=== PATIENT | female | born 1935 | race Caucasian/White ===

== ENCOUNTER → 2017-05-11 | Outpatient (CLI) | payer OTHER, BC ==
[~2017-05-11] MED LIST: ACTIGALL300 MG PO; ADDERALL 5 MG TA5 M1 PO; ARMOUR THYROID15 M1 PO; AVINZA 60 MG CA60 M1 PO; B12 INJECTION; BIOTIN5 MG PO; BROMELAIN; CALCIUM 500 +1 EAC5 PO; CLONAZEPAM 1 MG1 M1 PO; DESYREL50 MG PO; DOXEPIN 10 MG C10 MG PO; GABAPENTIN 100100 MG PO; GABAPENTIN100 MG PO; MIRALAX255 GM PO; MORPHINE SULFAT15 M3 PO; MORPHINE SULFAT15 M4 PO; MORPHINE SULFATE IR PO; MS CONTIN15 MG PO; MULTIVITAMINS PO; OSTEO BI-FLEX1 EACH PO; PHENERGAN 25 MG25 M1 PO; PROMS25 WY RECTAL; PROZAC 20 MG20 MG PO; PROZAC20 MG/5 ML PO; VITAMINC500 PO; ZOFRAN ODT4 MG PO; [UNRECOGNIZED DRUG - OTHER]
== END ==
LOC: RAD 15:16
DX: Z12.31 Encounter for screening mammogram for malignant neoplasm of breast (principal)

== ENCOUNTER 2018-07-13 22:37 | Emergency (ER) | payer OTHER, BC ==
[~2018-07-13] VITALS: Ht 165.1 cm; Wt 59.0 kg
[2018-07-13 23:24] LABS: ABSOLUTE NEUTROPHILS 4.5 thou/uL (1.4-8.2); BASOPHILS 0.8 % (0.0-2.0); EOSINOPHILS 2.7 % (0.0-3.0); HEMATOCRIT 41.3 % (37.0-47.0); HEMOGLOBIN 14.1 gm/dL (12.0-15.0); LYMPHOCYTES 22.3 % (24.0-44.0); MCH 32.8 pg (26.0-34.0); MCHC 34.2 g/dL (28.0-37.0); MCV 95.8 fL (80.0-100.0); MONOCYTES 10.9 % (1.0-8.0); PLATELET COUNT 253 thou/uL (150-400); POLYS 63.3 % (36.0-66.0); RBC 4.31 mil/uL (4.20-5.00); RDW 12.9 % (10.5-14.5); WBC 7.1 thou/uL (4.0-11.0)
[2018-07-14 00:48] VITALS: BP 123/102
== END 2018-07-14 00:48 | disposition home or self-care (01) ==
LOC: ER 22:37
PROVIDERS: Emergency Medicine
DX: M25.552 Pain in left hip (principal); K21.9 Gastro-esophageal reflux disease without esophagitis; Z90.49 Acquired absence of other specified parts of digestive tract

== ENCOUNTER 2020-09-30 14:03 | Inpatient (IN) | payer OTHER, BC ==
[~2020-09-30] VITALS: Ht 162.6 cm; Wt 49.0 kg
[2020-09-30 14:24] VITALS: BP 138/80
[2020-09-30 15:15] LABS: URINE BILIRUBIN NEGATIVE (Negative); URINE BLOOD NEGATIVE (Negative); URINE CLARITY CLEAR; URINE COLOR YELLOW; URINE GLUCOSE-RANDOM* NEGATIVE (Negative); URINE KETONES 1+ (Negative); URINE LEUKOCYTES-REFLEX NEGATIVE (Negative); URINE NITRITE-REFLEX NEGATIVE (Negative); URINE PROTEIN (DIPSTICK) NEGATIVE (Negative); URINE UROBILINOGEN 0.2 E.U./dl (0.2-1.0)
[2020-09-30 15:37] LABS: ABSOLUTE NEUTROPHILS 5.8 thou/uL (1.4-8.2); BASOPHILS 0.8 % (0.0-2.0); EOSINOPHILS 0.2 % (0.0-3.0); HEMATOCRIT 40.1 % (37.0-47.0); HEMOGLOBIN 13.6 gm/dL (12.0-15.0); LYMPHOCYTES 10.5 % (24.0-44.0); MCH 32.4 pg (26.0-34.0); MCHC 33.9 g/dL (28.0-37.0); MCV 95.8 fL (80.0-100.0); MONOCYTES 8.8 % (1.0-8.0); PLATELET COUNT 274 thou/uL (150-400); POLYS 79.7 % (36.0-66.0); RBC 4.19 mil/uL (4.20-5.00); RDW 12.9 % (10.5-14.5); WBC 7.3 thou/uL (4.0-11.0)
[2020-09-30 15:49] LABS: CALCIUM 9.7 mg/dL (8.5-10.1); CREATININE 0.9 mg/dL (0.6-1.0); POTASSIUM 4.5 mmol/L (3.5-5.1)
[2020-09-30 15:53] LABS: TOTAL BILIRUBIN 0.6 mg/dL (0.2-1.0)
[2020-09-30 19:58] VITALS: BP 146/66
[2020-09-30 20:10] VITALS: BP 146/66
[2020-09-30 20:45] VITALS: BP 177/71
[2020-09-30 23:31] VITALS: BP 142/71
--- NOTE | 2020-10-01 02:53 | NUR ---
PATIENT ADMITTED FOR CONSTIPATION. PATIENT AOX4 MAKES NEEDS KNOWN. PATIENT NEEDS MAXIMUM ASSISTANCE WITH ADL, BED MOBILITY, TRANSFER AND TOILETING.PATIENT INCONTIENT THIS SHIFT PERICARE AND BARRIER CREAM APPLIED NEEDED. FAL PRECAUTION IN PLACE. PATIENT IN BED ASLEEP AT THIS TIME BREATHING REGULAR AND UNLABOURED.
[2020-10-01 03:49] VITALS: BP 144/71
[2020-10-01 08:00] VITALS: BP 150/73
[2020-10-01 08:11] VITALS: BP 150/73
--- NOTE | 2020-10-01 15:10 | NUR ---
PT ADMITTED RELATED TO CONSTIPATION, FECAL IMPACTION, AND WEAKNESS. CM REVIEWED CHART AND SPOKE WITH CARE TEAM. CM MET WITH PT AT BEDSIDE THIS DAY. PT APPEARED TO BE A&O X4. CM ROLE INTRODUCED. PT INDICATED SHE RESIDES IN A HOUSE ALONE WITH 1 STEP TO ENTER AND NONE SHE USES INSIDE. 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 PT INDICATED SHE HAS PD SERVICES THROUGH [facility] TWO DAYS A WEEK FOR 3 HRS. PT'S SON LIVES LOCALLY AND ASSISTS NEEDED. PT'S DTR LIVES IN [place] AND IS HER DPOA. PT INDICATED SHE IS INTERESTED IN POST ACUTE CARE STAY. LIST PROVIDED. CM MET WITH PT AND SON AT BEDSIDE THIS AFTERNOON AND THEY ASKED IF REFERRAL COULD BE SENT TO [facility]. CM FAXED REFERRAL FOR REVIEW. CM FOLLOWING REGARDING DC PLANNING. PT'S CHILDREN'S FAM CONTACTS HIWOT AU , ANDRADE GARCIA .
--- NOTE | 2020-10-01 15:12 | NUR ---
Assumed pt care at 7am.Pt in and out of bed with sba. Assessment completed. vss.Pt was anxious and worried about her home meds. Pt encouraged pt to discuss with Dr Vicente when making round.Pt has diarrhea after given miralax. Accounts Payable Supervisor assisted pt with pericare.Fall bundle in placed.Ivf infusing as ordered. Son called and updates given. Pt in bed resting at present without c/o.Will continue to monitor.
[2020-10-01 16:13] VITALS: BP 164/80
[2020-10-01 20:16] VITALS: BP 140/66
--- NOTE | 2020-10-02 00:30 | NUR ---
Pt. iv machine sounded off and patient became upset. Informed patient that they will sound off if the iv is not positioned right,need more fluids and or the battery needs charging. Pt. not willing to accept that answer. She voiced she has been here the last two nights and it never went off. Parrish RN went down to talk to the patient, but still not satisfied and iv pump was re- placed at pt. request. Iv pump would still sound off and patient becoming angry. Demanded the iv be turned off. Dorinda MARTINEZ notified with orders to Dc ivf. Bed alarm is on.
[2020-10-02 08:35] VITALS: BP 176/87
--- NOTE | 2020-10-02 12:12 | NUR ---
DINAH WITH [facility] INDICATED THAT THEY ARE ABLE TO ACCEPT PT MEDICALLY BUT THAT THEY WON'T HAVE A BED OPEN UNTIL MAYBE TOMORROW. SHE WILL KNOW FOR SURE AFTER 1500 THIS DAY. CM FOLLOWING REGARDING DC PLANNING.
[2020-10-02 15:05] VITALS: BP 160/77
--- NOTE | 2020-10-02 15:41 | NUR ---
ASSUMED PT CARE THIS AM. PT A&OX4, ABLE TO MAKE NEEDS KNOWN. PATIENT IV PATENT, SALINE LOCKED. REPORTS NO PAIN, NAUSEA OR VOMITING. ON ROOM AIR. PATIENT UP TO BEDSIDE COMMODE WITH ASSIST. PATIENT HAD A HERRMANN CATHETER THIS AM, ORDER TO REMOVE PLACED. FALL PRECAUTIONS ARE IN PLACE. CALL LIGHT WITHIN REACH.
[2020-10-02 19:47] VITALS: BP 169/84
--- NOTE | 2020-10-03 04:14 | NUR ---
Assumed pt care at 1900. A/Ox4,VSS. Denies pain on assessment, no N/V. Up with AX1 RW/GB to the bathroom. Pt had benton dc'd yesterday no void till 0200, bladder scan showed 593cc, order to straight cath pt obtained but pt voided in bed as well as in the toilet. Post void cath 14cc;no need for straight cath. Pt verbalizes relief. Fall precautions in place, will continue to monitor pt.
[2020-10-03 07:23] VITALS: BP 180/88
[2020-10-03] MEDS ORDERED: MIRALAX17 GM PO (08:52)
[2020-10-03] MEDS ORDERED: COLACE 100 MG100 MG PO (08:52)
--- NOTE | 2020-10-03 11:34 | NUR ---
CARE TEAM INDICATED THAT PT IS MEDICALLY STABLE TO DISCHARGE TO [facility] SKILLED THIS DAY. PT, SON, AND DTR ALL AWARE. [facility]AN TRANSPORT ARRANGED FOR 1400. CHART COPY ORDERED. ORDERS FAXED WELL COVID. NO OTHER CM INTERVENTION INDICATED. CASE CLOSED.
--- NOTE | 2020-10-03 11:55 | NUR ---
ASSUMED PT CARE THIS AM. PT A&OX4, ABLE TO MAKE NEEDS KNOWN. PATIENT VOICED FRUSTRATIONS THIS AM ABOUT HAVING THE BED ALARM TURNED ON AND WANTING TO AWLK AROUND HER ROOM INDEPENDENTLY. PATIENT WAS EDUCATED ON THE IMPORTANCE OF THE BED ALARM AND TO CALL WHEN SHE IS WANTING TO AMBULATE. PATIENT REPORTING NO PAIN. PATIENT REPORTED NAUSEA THIS AM, RESPONDED WELL TO NAUSEA MEDICATION GIVEN PER EMAR. PATIENT IS ON ROOM AIR. DENIES ANY NUMBNESS OR TINGLING. PATIENT TOOK ALL MORNING MEDICATIONS WITHOUT ISSUE. PATIENT REMAINS CONTINENT AND AMBUALTES TO THE BATHROOM WITH ASSIST WHEN NEEDED. FALL PRECAUTIONS ARE IN PLACE, CALL LIGHT WITHIN REACH.
== END 2020-10-03 14:16 | DRG 388 ==
LOC: ER 14:03 → 4W 19:38 → EROBS 19:38 → 4W 20:12
PROVIDERS: Nurse Practitioner Family; ADMIT Hospitalist; ATTEND Hospitalist
DX: K56.41 Fecal impaction (principal); E43 Unspecified severe protein-calorie malnutrition; Z68.1 Body mass index [BMI] 19.9 or less, adult; K21.9 Gastro-esophageal reflux disease without esophagitis; I10 Essential (primary) hypertension; G47.00 Insomnia, unspecified; G89.29 Other chronic pain; N32.89 Other specified disorders of bladder; Z60.2 Problems related to living alone; R53.81 Other malaise; R63.4 Abnormal weight loss; F32.9 Major depressive disorder, single episode, unspecified; F41.9 Anxiety disorder, unspecified; M47.896 Other spondylosis, lumbar region; M48.061 Spinal stenosis, lumbar region without neurogenic claudication; Z20.822 Contact with and (suspected) exposure to COVID-19; Z90.49 Acquired absence of other specified parts of digestive tract; Z83.3 Family history of diabetes mellitus
CPT/HCPCS: 10040

== ENCOUNTER 2020-11-13 10:43 | Emergency (ER) | payer OTHER, BC ==
[~2020-11-13] VITALS: Ht 162.6 cm; Wt 49.9 kg
[~2020-11-13 10:43] MED LIST changes: +COLACE 100 MG100 MG PO; +MIRALAX17 GM PO
[2020-11-13 11:36] LABS: ABSOLUTE NEUTROPHILS 5.5 thou/uL (1.4-8.2); BASOPHILS 0.8 % (0.0-2.0); EOSINOPHILS 1.2 % (0.0-3.0); HEMATOCRIT 36.9 % (37.0-47.0); HEMOGLOBIN 12.4 gm/dL (12.0-15.0); LYMPHOCYTES 12.2 % (24.0-44.0); MCH 32.5 pg (26.0-34.0); MCHC 33.6 g/dL (28.0-37.0); MCV 96.8 fL (80.0-100.0); MONOCYTES 8.5 % (1.0-8.0); PLATELET COUNT 279 thou/uL (150-400); POLYS 77.3 % (36.0-66.0); RBC 3.81 mil/uL (4.20-5.00); RDW 14.3 % (10.5-14.5); WBC 7.1 thou/uL (4.0-11.0)
[2020-11-13 11:54] LABS: ANION GAP 10 mmol/L (7-16); BUN 18 mg/dL (7-18); CALCIUM 9.3 mg/dL (8.5-10.1); CHLORIDE 105 mmol/L (98-107); CO2 24 mmol/L (21-32); CREATININE 0.9 mg/dL (0.6-1.0); GLUCOSE 148 mg/dL (74-106); POTASSIUM 4.5 mmol/L (3.5-5.1); SODIUM 139 mmol/L (136-145)
[2020-11-13 12:00] LABS: SGOT 42 U/L (15-37); SGPT 62 U/L (30-65); TOTAL BILIRUBIN 0.5 mg/dL (0.2-1.0); TOTAL PROTEIN 6.9 g/dL (6.4-8.2)
[2020-11-13 12:11] LABS: SALICYLATE < 2.8 mg/dL (2.8-20.0)
[2020-11-13 14:57] LABS: URINE BILIRUBIN NEGATIVE (Negative); URINE BLOOD NEGATIVE (Negative); URINE CLARITY CLEAR; URINE COLOR YELLOW; URINE GLUCOSE-RANDOM* NEGATIVE (Negative); URINE KETONES NEGATIVE (Negative); URINE NITRITE-REFLEX NEGATIVE (Negative); URINE PROTEIN (DIPSTICK) NEGATIVE (Negative); URINE UROBILINOGEN 0.2 E.U./dl (0.2-1.0)
[2020-11-13 15:09] LABS: URINE LEUKOCYTES-REFLEX 1+ (Negative)
[2020-11-13 15:38] LABS: BACTERIA-REFLEX 1-9 Few /HPF (None Seen); CASTS None Seen /LPF (None Seen); CRYSTALS None Seen /LPF (None Seen); SQUAMOUS 0-3 Few /LPF (0-3); URINE RBC None Seen /HPF (NONE SEEN); URINE WBC-REFLEX 0-5 Rare /HPF (0-5)
[2020-11-13 17:08] VITALS: BP 140/53
[2020-11-14] MEDS ORDERED: AMPHETAMINE SUL10 MG PO (00:50)
[2020-11-14] MEDS ORDERED: BUPRENORPHINE HC2 MG SUBLING (00:53)
[2020-11-14] MEDS ORDERED: BUSPAR30 MG PO (00:53)
[2020-11-14] MEDS ORDERED: CLONAZEPAM 0.50.5 M1 PO (00:55)
[2020-11-14] MEDS ORDERED: CALCIUM MAGNES1 EAC2 PO (00:55)
[2020-11-14] MEDS ORDERED: COQ1050 MG PO (00:56)
[2020-11-14] MEDS ORDERED: CULTURELLE PRO1 EACH PO (00:57)
[2020-11-14] MEDS ORDERED: FERROUS GLUCON240 MG PO (00:58)
[2020-11-14] MEDS ORDERED: FIBERCON625 M1 PO (00:58)
[2020-11-14] MEDS ORDERED: HYDROXYZINE HCL10 M2 PO (00:58)
[2020-11-14] MEDS ORDERED: METOCLOPRAMIDE10 MG PO (00:59)
[2020-11-14] MEDS ORDERED: MELOXICAM7.5 MG PO (00:59)
[2020-11-14] MEDS ORDERED: MOVANTIK25 MG PO (01:00)
[2020-11-14] MEDS ORDERED: NARCAN4 MG NARES (01:01)
[2020-11-14] MEDS ORDERED: SENNA8.6 MG PO (01:02)
[2020-11-14] MEDS ORDERED: VITAMIN B-121000 MC1 PO (01:02)
[2020-11-14] MEDS ORDERED: VITAMIN B-1100 M2 PO (01:02)
[2020-11-14] MEDS ORDERED: ONDANSETRON HCL4 M2 PO (01:03)
[2020-11-14] MEDS ORDERED: TRAZODONE HCL50 MG PO (01:05)
[2020-11-14] MEDS ORDERED: CAL-MAG TABLET1 EACH PO (05:54)
== END 2020-11-13 17:15 ==
LOC: ER 10:43
PROVIDERS: Physician Assistant
DX: N39.0 Urinary tract infection, site not specified (principal); R45.1 Restlessness and agitation; K21.9 Gastro-esophageal reflux disease without esophagitis; Z79.899 Other long term (current) drug therapy; Z90.49 Acquired absence of other specified parts of digestive tract

== ENCOUNTER 2020-11-13 17:47 | Inpatient (IN) | payer OTHER, BC ==
[~2020-11-13] VITALS: Ht 162.6 cm; Wt 50.5 kg
[2020-11-14] MEDS ORDERED: AMPHETAMINE SUL10 MG PO (00:50)
[2020-11-14] MEDS ORDERED: BUSPAR30 MG PO (00:53)
[2020-11-14] MEDS ORDERED: BUPRENORPHINE HC2 MG SUBLING (00:53)
[2020-11-14] MEDS ORDERED: CLONAZEPAM 0.50.5 M1 PO (00:55)
[2020-11-14] MEDS ORDERED: CALCIUM MAGNES1 EAC2 PO (00:55)
[2020-11-14] MEDS ORDERED: COQ1050 MG PO (00:56)
[2020-11-14] MEDS ORDERED: CULTURELLE PRO1 EACH PO (00:57)
[2020-11-14] MEDS ORDERED: FERROUS GLUCON240 MG PO (00:58)
[2020-11-14] MEDS ORDERED: HYDROXYZINE HCL10 M2 PO (00:58)
[2020-11-14] MEDS ORDERED: FIBERCON625 M1 PO (00:58)
[2020-11-14] MEDS ORDERED: METOCLOPRAMIDE10 MG PO (00:59)
[2020-11-14] MEDS ORDERED: MELOXICAM7.5 MG PO (00:59)
[2020-11-14] MEDS ORDERED: MOVANTIK25 MG PO (01:00)
[2020-11-14] MEDS ORDERED: NARCAN4 MG NARES (01:01)
[2020-11-14] MEDS ORDERED: SENNA8.6 MG PO (01:02)
[2020-11-14] MEDS ORDERED: VITAMIN B-1100 M2 PO (01:02)
[2020-11-14] MEDS ORDERED: VITAMIN B-121000 MC1 PO (01:02)
[2020-11-14] MEDS ORDERED: ONDANSETRON HCL4 M2 PO (01:03)
[2020-11-14] MEDS ORDERED: TRAZODONE HCL50 MG PO (01:05)
[2020-11-14 03:19] LABS: URINE BILIRUBIN NEGATIVE (Negative); URINE BLOOD NEGATIVE (Negative); URINE CLARITY CLEAR; URINE COLOR YELLOW; URINE GLUCOSE-RANDOM* NEGATIVE (Negative); URINE KETONES NEGATIVE (Negative); URINE LEUKOCYTES TRACE (Negative); URINE NITRITE NEGATIVE (Negative); URINE PROTEIN (DIPSTICK) NEGATIVE (Negative); URINE SPECIFIC GRAVITY 1.015 (1.005-1.035); URINE UROBILINOGEN 0.2 E.U./dl (0.2-1.0)
[2020-11-14 05:42] LABS: ABSOLUTE NEUTROPHILS 2.5 thou/uL (1.4-8.2); BASOPHILS 1.4 % (0.0-2.0); EOSINOPHILS 5.8 % (0.0-3.0); HEMATOCRIT 34.4 % (37.0-47.0); HEMOGLOBIN 11.7 gm/dL (12.0-15.0); LYMPHOCYTES 26.8 % (24.0-44.0); MCH 32.7 pg (26.0-34.0); MCHC 34.1 g/dL (28.0-37.0); MCV 95.8 fL (80.0-100.0); MONOCYTES 11.5 % (1.0-8.0); PLATELET COUNT 230 thou/uL (150-400); POLYS 54.5 % (36.0-66.0); RBC 3.59 mil/uL (4.20-5.00); RDW 14.1 % (10.5-14.5); WBC 4.6 thou/uL (4.0-11.0)
[2020-11-14] MEDS ORDERED: CAL-MAG TABLET1 EACH PO (05:54)
--- NOTE | 2020-11-14 06:16 | NUR ---
Brought to the [facility] floor by [facility] staff x1 prior to 18:15 and assisted into bed 522B. Ambulates with assistance of walker. Steady gait noted. Reports that she was in [facility] to do physical therapy for weak legs. Denies any memory of attempting to elope although reports that she very much did not want to be at the half-way. Admitted as a FULL CODE, NKA, regular diet, supplements between meals, reports that she likes any flavor of supplement shake. No dentures no glasses, reports that she would benefit from reading glasses, no hearing aides. oriented x2 to name of the hospital and self. unable to give the date, says she cannot/or will not give the name of the president. Reports rob is Rastafari. Reports abdominal HX of cholesystectomy. Repeatedly asked for medication, then when brought, refused to take it, saying is this poison. Muscle weakness in both legs. Paranoid ideation, talks about "[place]" and WWII concentration camps. Daughter Tamika reports she will be here @ 10:45 to visit her mom. Repeatedly asks to leave, and when informed that she will see the Doctor today, and the is the one to arrange her discharge. Says, I wont cooperate, I wont be here that long. Oriented to breakfast time, fall protocol, the doctors who will follow her case and their role in her care. HX of bladder CA, malignant neoplasm of bladder, chronic constipation, H TN, Spinal stenosis, RLS, low back pain, anxiety disorder, primary insomnia, muscle weakness to the lower extremities, difficulty walking, cholesystectomy, paranoid ideation, elopment risk, admitting DX of psychosis NOS. Son Art, DPOA consented to treat.
[2020-11-14 06:24] LABS: ALBUMIN 3.6 g/dL (3.4-5.0); ANION GAP 10 mmol/L (7-16); BUN 16 mg/dL (7-18); CHLORIDE 105 mmol/L (98-107); CHOLESTEROL 179 mg/dL (<200); CO2 25 mmol/L (21-32); CREATININE 0.8 mg/dL (0.6-1.0); GLUCOSE 95 mg/dL (74-106); HDL CHOLESTEROL 95 mg/dL (>40); LDL CHOLESTEROL 77 mg/dL (<100); POTASSIUM 3.9 mmol/L (3.5-5.1); SGOT 26 U/L (15-37); SGPT 51 U/L (30-65); SODIUM 140 mmol/L (136-145); TC:HDL 1.9 Ratio (Not establshd); TOTAL BILIRUBIN 0.6 mg/dL (0.2-1.0); TOTAL PROTEIN 6.2 g/dL (6.4-8.2); TRIGLYCERIDE 39 mg/dL (<150); VLDL 8 mg/dL (<40)
[2020-11-14 06:33] LABS: SERUM ASSESSMENT Clear
--- NOTE | 2020-11-14 12:47 | NUR ---
PT AGITATED AND PARANOID. PACING THROUGHOUT UNIT. WILL ONLY SIT MOMENTARILY. PT THREATING TO [facility] STAFF. PT REFUSED ALL MORNING MEDICATIONS AND ASSESSMENTS. AFEBRILE, ADEQUATE UOP, NO BM, POOR APPETITE. PT AND DAUGHTER HAVE BEEN THOUROUGHLY UPDATED AND EDUCATED ON PT CONDITION AND POC.
--- NOTE | 2020-11-14 17:13 | NUR ---
1530 ASSUMED CARE OF PATIENT, PATIENT IN BED AT THAT TIME. 1545 PATIENT UP AMB IN [place] WITH WALKER ASKING TO LEAVE WITH C/O NEEDING TO GO HOME. SLIGHT AGGITATION NOTED SOFTWARE PACKAGER SPOKE WITH PATIENT REDIRECTING PATIENT TO DAYROOM FOR VISITATION. DAUGHTER HER TO VISIT PATIENT. DAUGHTER HAS MULTIPLE QUESTIONS, SOFTWARE PACKAGER ABLE TO ANSWER QUESTIONS. WILL CONTINUE TO OBSERVE
[2020-11-14 23:06] LABS: GLYCOHEMOGLOBIN (HGB A1C) 5.5 % (4.8-5.6)
--- NOTE | 2020-11-15 13:09 | NUR ---
PATIENT CARE ASSUMED AT 0700 - SHORTLY BEFORE GEODON GIVEN IM BEFORE ARRIVAL ON UNIT. PATIENT CALM BUT FIXATED ON LEAVING AND REPEATEDLY ASKS TO BE LET OUT. PATIENT ATE BUT COMPLAINED OF CONSTIPATION. GIVEN MULTIPLE STOOL SOFTENERS WITH HER MORNING MEDICATIONS. PATIENT STATED STOMACH DISCOMFORT WELL. GIVEN ZOFRAN AT NOON AND STATED HELPED. PATIENT DAUGHTER HERE REQUESTED LIST OF MEDICATIONS - DR. GRANDA STATED ADDING ULTRAM FOR PAIN DISCOMFORT AND PROBIOTIC TO AID WITH DIGESTION ISSUES. ANTIBIOTIC D/C DUE TO IMPROVED LAB RESULTS. PATIENT AFFECT FLAT AND IRRITABLE AND MOOD ANXIOUS - DAUGHTER VISITED AND WENT WELL. APPETITE POOR BUT ATE 25 PERCENT OF HER MEALS. HAS DIFFICULTY SWALLOWING PILLS OFFERED THICKENED FLUIDS TO AID WITH ADMINISTRATION OF PILLS. DID NOT PARTICIPATE IN GROUP - STAYED IN ROOM.
--- NOTE | 2020-11-15 18:26 | NUR ---
@4303 MAITE was able to speak with the Pt's daughter, Annabel. Annabel inquired about discharge for the Pt. Joana stated she believes the Pt is not doing well and would do better at home with 24 hour supervision. MAITE educated on the Pt's current behaviors. Also that the Pt has been seen by Dr. Kendrick and it is not recommended at this time that Pt is discharged. Maite also informed that the Pt's so is the 1st appointment DPOA and would have to be in agreement to the plan of discharge. Annabel seemed to understand this information. MAITE will call DPOA to discuss discharge plans.
[2020-11-15 20:54] VITALS: BP 165/77
--- NOTE | 2020-11-16 04:26 | NUR ---
PT ALERT AND ORIENT TO SELF. UP WITH WALKER IN [place]. REQUESTED SOMETHING FOR PAIN AND EARLIER SHE WANTED SOMETHING FOR SLEEPING. PT STATE THAT SHE HAS, "RESTLESS ARM SYNDROME". PT SEEMED TRUSTING OF THIS RN AND TOOK ALL MEDS WITHOUT DIFFICULTY. PT WAS NOT AGGRESSIVE AND EVENTUALLY WENT TO SLEEP FOR 3+ HRS. SLOW PROGRESS TOWARDS DC GOALS. WILL CONTINUE TO MONITOR.
[2020-11-16 09:23] VITALS: BP 164/92
[2020-11-16 12:12] VITALS: BP 138/98
--- NOTE | 2020-11-16 15:06 | NUR ---
Assumed pt care at 0700. pt was in her room resting. Alert and oriented to person, place and time. Assessments completed, vss. Denies si/hi, c/o pain. tylenol administered as ordered.luNgs sound clear on auscultation. Ambulates with a walker. pt have a flat affect. No sign of acute distress noted upon assessments. pt ambulates the hallway. pt was agitated, but was redirectablE. Pt daughter visited, she had lots of question about pt meds. pt daugheter concern were addressed.At this time pt is ambulating UNIT hallway. WILL CONTINUE TO MONITOR.
--- NOTE | 2020-11-16 15:08 | NUR ---
SW received a message from nursing staff pt's daughter requested to speak with SW. Called daughter Annabel and left a voice message asking her to call SW. SW team will remain available while on the unit.
[2020-11-16 20:26] VITALS: BP 166/86
--- NOTE | 2020-11-17 05:53 | NUR ---
11-16-20 CARE TRANSFERRED 1899. LATER PT AAOX2, VSS, RR EVEN AND NONLABORED ON RA. PT DENIES SI/HI. PT PRESENTS CALM AND COOPERATIVE. DURING MEDICATION ADMIN PT REPORTED PAIN AND PAIN HAS BEEN MANAGED WITH PRN MEDICATINS. PT WILL CONTINUE TO BE MONITOR PER [facility] PROTOCOL.
[2020-11-17 08:00] VITALS: BP 125/92
[2020-11-17 20:10] VITALS: BP 172/99
[2020-11-17 20:11] VITALS: BP 172/99
--- NOTE | 2020-11-18 00:54 | NUR ---
PATIENT WAS UP WALKING IN THE HALLS WITH HER WALKER THIS EVENING. SHE HAS BEEN PLEASANT AND COOPERATIVE. SHE HAD C/O PAIN IN LEFT LOWER ABDOMEN WITH PAINSCORE OF 8 OUT OF 10. OXYCODONE 5MG PO WAS GIVEN AT THIS TIME. PATIENT REQUESTED TRAZADONE 75MG PO FOR SLEEP TONIGHT. SHE ALSO HAD KLONIPIN AND HYDRALAZINE THAT WORKED WELL FOR ANXIETY. SHE AWOKE AN HOUR AND A HALF AFTER HAVING OXYCODONE AND TRAZADONE AND ASKED ANOTHER NURSE FOR PAIN SHE WAS HAVING THAT WENT DOWN HER HER LEG. WHEN THIS NURSE WENT IN TO GIVE HER TYLENOL AND ZOFRAN ABOUT 10MINUTES LATER, SHE WAS ASLEEP AND SNORING. TYLENOL AND ZOFRAN WERE NOT GIVEN. PATIENT WITH SOMATIC COMPLAINTS AT TIMES BUT BODY LANGUAGE AND FACE DO NOT SHOW PAIN. PT HAS BEEN PLEASANT. ROUTINE ROUNDS TO ASSESS SAFETY AND STATUS OF PATIENT.
--- NOTE | 2020-11-18 01:23 | NUR ---
PATIENT CAME TO NURSE STATION A FEW MINUTES AGO AND REQUESTED TYLENOL TO HELP HER LEFT LEG THAT IS RESTLESS AND KEEPING HER AWAKE. SHE STATES SHE DOES NOT HAVE PAIN BUT ASPIRIN IS WHAT SHE USUALLY TAKES TO HELP WITH RESTLESS LEG. PT TOOK TYLENOL 650MG PO AND LAID BACK DOWN. WILL CONTINUE TO MONITOR.
--- NOTE | 2020-11-18 05:22 | NUR ---
PATIENT UP WALKING [place] AND STATES SHE NEEDS SOMETHING FOR PAIN. PAIN IN BACK AND BILATERAL ARMS. STATES HER ARMS GET RESTLESS AND HURT. TRAMADOL 50MG PRN GIVEN ALONG WITH HER PANTROPAZOLE 40MG MORNING DOSE AND PATIENT BACK TO LAY DOWN AND TRY AND SLEEP.
[2020-11-18 08:39] VITALS: BP 140/77
[2020-11-18 11:51] VITALS: BP 140/77
[2020-11-18] MEDS ORDERED: PERCOCET PO (11:58)
[2020-11-18] MEDS ORDERED: TRAMADOL 50 MG50 MG PO (11:58)
[2020-11-18] MEDS ORDERED: CLONAZEPAM 0.50.5 M1 PO (12:00)
[2020-11-18] MEDS ORDERED: TRAZODONE HCL50 MG PO (12:01)
--- NOTE | 2020-11-18 12:59 | NUR ---
@[address] Kendrick participated in phone call with Pt's son/DPOA, Art Salazar [phone]. The phone call was concerning discharge. Art called a spoke with nursing concening wanting to pick the Pt today. Dr. Kendrick in in agreement with discharge today. Art informed he has hired private duty nursing through Home instead. Pt will also have PT and nursing through home instead. Pt has a follow up visit for psychiatry with Dr. Joshi on 11/19/2020 @ 1115. Pt will d/c 11/18/2020 @ 1300 home. Art stated he would transport the pt.
--- NOTE | 2020-11-18 14:57 | NUR ---
DISCHARGE INSTRUCTIONS REVIEWED WITH SON RANDY ANDRADE JOSE AND DAUGHTER JOSE C-THEY STATE UNDERSTANDING AND DENY QUESTIONS AND CONCERNS. PT IS ALERT AND IN NO APPARENT DISTRESS AT TIME OF DC-DENIES COMPLAINTS. DISCHARGED WITH [facility] AND ALL OTHER PERSONAL BELONGINGS VIA AT 1320 TO AWAITING PRIVATE VEHICLE-ACCOMPNIED BY SON ANDRADE AND DAUGHTER JOSE C.
== END 2020-11-18 13:20 | disposition home or self-care (01) | DRG 885 ==
LOC: SBH 17:47
PROVIDERS: ADMIT Psychiatry & Neurology Psychiatry; ATTEND Psychiatry & Neurology Psychiatry
DX: F29 Unspecified psychosis not due to a substance or known physiological condition (principal); N39.0 Urinary tract infection, site not specified; F41.9 Anxiety disorder, unspecified; I10 Essential (primary) hypertension; G47.00 Insomnia, unspecified; G25.81 Restless legs syndrome; G89.4 Chronic pain syndrome; K21.9 Gastro-esophageal reflux disease without esophagitis; M54.5 Low back pain; Z90.49 Acquired absence of other specified parts of digestive tract; Z85.51 Personal history of malignant neoplasm of bladder
CPT/HCPCS: 10880